=== PATIENT | female | born 1955 | race Caucasian/White ===

== ENCOUNTER 2017-09-30 11:25 | Emergency (ER) | payer BC, OTHER ==
[~2017-09-30] VITALS: Ht 160 cm; Wt 80.0 kg
[2017-09-30 11:28] VITALS: BP_SYST 205; BP_SYST 215; BP_DIAS 105; BP_DIAS 108; PULSE 106; RESP 16; TEMP 98; O2SAT 98
[2017-09-30] MEDS ORDERED: ASPI-516 CHEW (11:58)
[2017-09-30] MEDS ORDERED: MEDI220T PO (11:58)
[2017-09-30] MEDS ORDERED: MULT-65 PO (11:58)
[2017-09-30 12:00] VITALS: BP 186/98; PULSE 94; RESP 18; O2SAT 97
--- NOTE | 2017-09-30 12:03 | PD ---
HPI Chief Complaint: Hypertension Time Seen by Provider: 11:46 Travel History International Travel<30 days: No Contact w/Intl Traveler<30days: No Traveled to known affect area: No History of Present Illness HPI 61 YO F presents to the ED for evaluation after visiting her SUIT ATTENDANT today. She states that she had an elevated BP and was advised to come to the ED. On right presentation she denies headaches, dizziness, vision changes, chest pain, palpitations, shortness of breath, nausea, vomiting, abdominal pain, dysuria, lower extremity edema, weakness of the extremities, facial droop, difficulties with speech. She states that she has white coat syndrome and generally has high blood pressures at the doctor's office. She states that normally she records her blood pressure for the week prior to the doctor's appointment to show but she neglected to do this today. She does complain of diminished hearing in the left ear for "about a year." She states she has an appointment with the ENT after [place]. She denies ear pain, fever, chills, sinus congestion, runny nose, cough. No cardiac history. No familial cardiac history. Quit smoking 33 years ago. 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) Social History Alcohol Use: No Tobacco Use: No Substance Use: No Allergies-Medications (Allergen,Severity, Reaction): Coded Allergies: latex (Verified Allergy, Severe, 09/30/17) Reported Meds & Prescriptions Reported Meds & Active Scripts Active Ofloxacin Otic Drops 0.3 % Drops 5 Drop LEFT EAR DAILY 10 Days Reported Naproxen Sodium 220 Mg Tab 220 Mg PO DAILY PRN Multi-Vitamin Daily (Multiple Vitamin) 1 Tab Tab 1 Tab PO DAILY Aspirin 81 Mg Chew 81 Mg CHEW DAILY Review of Systems Except as stated in HPI: all other systems reviewed are Neg Physical Exam Narrative GENERAL: Well-nourished, well-developed pleasant white female in no acute distress. SKIN: Warm and dry. HEAD: Normocephalic. Atraumatic. EYES: No scleral icterus. No injection or drainage. PERRLA. EOMI. ENT: Cerumen impaction on the left. Right tympanic membrane pearly ocampo, bony landmarks visible. Nasal mucosa is moist. Oropharynx without erythema, edema or exudate. NECK: Supple, trachea midline. No JVD or lymphadenopathy. CARDIOVASCULAR: Regular rate and rhythm without murmurs, gallops, or rubs. No carotid bruits. 2+ DP and radial pulses bilaterally. RESPIRATORY: Breath sounds clear and equal bilaterally. No accessory muscle use. GASTROINTESTINAL: Abdomen soft, non-tender, nondistended. + Bowel sounds MUSCULOSKELETAL: No cyanosis, or edema. NEUROLOGICAL: Awake and alert. Cranial nerves II through XII intact. Motor and sensory grossly within normal limits. Five out of 5 muscle strength in all muscle groups. Normal speech. BACK: Nontender without obvious deformity. No CVA tenderness. Data Data Last Documented VS Vital Signs Date Time Temp Pulse Resp B/P (MAP) Pulse Ox O2 Delivery O2 Flow Rate FiO2 09/30/17 12:51 90 18 152/87 (108) 97 Room Air 09/30/17 11:28 98.0 Orders Orders Ed Discharge Order (09/30/17 12:55) [facility] Medical Decision Making Medical Screen Exam Complete: Yes Emergency Medical Condition: Yes Differential Diagnosis Whitecoat syndrome versus episodic hypertension versus chronic hypertension versus otitis externa versus cerumen impaction versus other Narrative Course 61 YO F presents to the ED for evaluation after visiting her SUIT ATTENDANT today. She states that she had an elevated BP and was advised to come to the ED. On right presentation she denies headaches, dizziness, vision changes, chest pain, palpitations, shortness of breath, nausea, vomiting, abdominal pain, dysuria, lower extremity edema, weakness of the extremities, facial droop, difficulties with speech. Endorses history of white coat syndrome and usually records her BP for the week prior to her doctor appointment but neglected to do so today. She does complain of diminished hearing in the left ear for "about a year." She denies ear pain, fever, chills, sinus congestion, runny nose, cough. No cardiac history. No familial cardiac history. Quit smoking 33 years ago. Patient's mildly tachycardic with a BP of 205/105 on presentation. This resolves in the room, last BP 152/87. Physical exam is reassuring. She does have a left-sided cerumen impaction which was flushed in the ED. There was some irritation of the external canals that she was provided a prescription for Ofloxacin, 5 drops daily 10 days. She is instructed to monitor her BP and present the log to her primary care provider at the next visit. We discussed reasons to return to the ED. The patient indicated understanding of the instructions and is agreeable to the care plan. She is stable and discharged home. Diagnosis Primary Impression: Impacted cerumen of left ear Additional Impression: White coat syndrome without diagnosis of hypertension Referrals: Primary Care Physician Patient Instructions: General Instructions, Hypertension (ED), Otitis Externa ( ED) Additional Instructions: Rest, hydrate. Monitor your blood pressure and present BP log to primary care at next visit. Ofloxacin drops in the affected ear 5 drops daily. Follow-up with the primary care provider as discussed. Return to the ED for any urgent or emergent medical condition. Med/Other Pt SpecificInfo: Prescription(s) given Scripts Ofloxacin Otic Drops (Ofloxacin Otic Drops) 0.3 % Drops 5 DROP LEFT EAR DAILY for Infection for 10 Days, #1 BOTTLE 0 Refills Prov: Kylee Lopez MD 09/30/17 Disposition: 01 DISCHARGE HOME Condition: Stable Yanni Ha Sep 30, 2017 12:03
[2017-09-30 12:51] VITALS: BP 152/87; PULSE 70; PULSE 90; RESP 18; O2SAT 97
[2017-09-30] MEDS ORDERED: OFLO0.3D9 LEFT EAR (12:52)
== END 2017-09-30 13:36 | disposition home or self-care (01) ==
LOC: NEPC 11:25
DX: H61.22 Impacted cerumen, left ear (principal); R03.0 Elevated blood-pressure reading, without diagnosis of hypertension; Z79.82 Long term (current) use of aspirin; Z85.820 Personal history of malignant melanoma of skin; Z87.891 Personal history of nicotine dependence
CPT/HCPCS: 99283